=== PATIENT | female | born 1985 | race African-American/Black ===

== ENCOUNTER 2020-09-28 14:30 | Emergency (ER) | payer OTHER | END 2020-09-28 15:38 | disposition left against medical advice (07) | LOC: CSHERS 14:30 | DX: Z53.21 Procedure and treatment not carried out due to patient leaving prior to being seen by health care provider (principal) ==

== ENCOUNTER 2021-12-08 17:04 | Emergency (ER) | payer OTHER | END 2021-12-08 18:58 | disposition home or self-care (01) | LOC: CSHERS 17:04 | DX: S90.31XA Contusion of right foot, initial encounter (principal); I10 Essential (primary) hypertension; W20.8XXA Other cause of strike by thrown, projected or falling object, initial encounter ==